=== PATIENT | female | born 1945 | race Caucasian/White ===

== ENCOUNTER 2021-09-16 10:33 | Emergency (ER) | payer OTHER ==
[~2021-09-16] VITALS: Ht 152.4 cm; Wt 63.5 kg
[2021-09-16] MEDS ORDERED: PLAVIX75 MG PO (10:50)
[2021-09-16] MEDS ORDERED: CARDIZEM120 MG PO (10:52)
[2021-09-16] MEDS ORDERED: METOPROLOL SUCC50 MG PO (10:52)
[2021-09-16] MEDS ORDERED: CIPRO500 MG PO (15:56)
[2021-09-16] MEDS ORDERED: PEPCID AC20 MG PO (15:56)
[2021-09-16] MEDS ORDERED: LEVSIN/SL0.125 MG PO (15:56)
[2021-09-16] MEDS ORDERED: METRONIDAZOLE500 MG PO (15:56)
== END 2021-09-16 16:25 ==
LOC: ER 10:33
DX: R10.32 Left lower quadrant pain (principal); I10 Essential (primary) hypertension; E11.65 Type 2 diabetes mellitus with hyperglycemia

== ENCOUNTER 2022-05-12 12:11 | Outpatient (CLI) | payer OTHER ==
[~2022-05-12 12:11] MED LIST: CARDIZEM120 MG PO; CIPRO500 MG PO; LEVSIN/SL0.125 MG PO; METOPROLOL SUCC50 MG PO; METRONIDAZOLE500 MG PO; PEPCID AC20 MG PO; PLAVIX75 MG PO
== END 2022-05-12 12:17 | disposition home or self-care (01) ==
LOC: MAMO-SONO 12:11
PROVIDERS: ATTEND Internal Medicine Cardiovascular Disease
DX: N63.0 Unspecified lump in unspecified breast (principal)

== ENCOUNTER 2024-02-09 10:02 | Outpatient (CLI) | payer OTHER | END 2024-02-09 10:10 | disposition home or self-care (01) | LOC: SONOGRAMA 10:02 | DX: R10.9 Unspecified abdominal pain (principal) ==

== ENCOUNTER 2024-10-01 11:46 | Emergency (ER) | payer OTHER ==
[~2024-10-01] VITALS: Ht 152.4 cm; Wt 62.1 kg
[2024-10-01] MEDS ORDERED: TOPROL XL100 M1 PO (12:40)
[2024-10-01] MEDS ORDERED: LASIX20 MG PO (12:41)
[2024-10-01] MEDS ORDERED: METFORMIN HCL500 M3 PO (12:41)
[2024-10-01] MEDS ORDERED: ATIVAN1 M1 PO (12:42)
[2024-10-01] MEDS ORDERED: GLIMEPIRIDE4 MG PO (12:42)
[2024-10-01] MEDS ORDERED: ONDANSETRON HCL 2 MG/ML VIAL ONE (13:30)
[2024-10-01] MEDS ORDERED: ONDANSETRON HCL 2 MG/ML VIAL IV ONE (13:30)
[2024-10-01] MEDS ORDERED: MECLIZINE HCL 25 MG TABLET PO ONE ×2 (13:30→13:31)
[2024-10-01 13:50] LABS: HEMOGLOBIN 14.3 g/dL (12.0-15.00); MEAN CELL VOLUME 86.2 fL (80.00-100.00); MEAN CORPUSCULAR HGB CONC 32.5 g/dl (32.0-36.0); PLATELET COUNT 214 K/uL (150-450); RED BLOOD COUNT 5.11 M/uL (4.00-6.00); RED CELL DISTRIBUTION WIDTH 14.8 % (11.5-14.5)
[2024-10-01 14:41] LABS: BILIRUBIN TOTAL 0.69 mg/dL (0.3-1.2); CALCIUM 9.4 mg/dL (8.5-10.1); CREATININE SERUM 0.96 mg/dL (0.55-1.02); GFR 55.92; GLOBULINA 4.6 G/DL (2.4-3.5); POTASSIUM 3.82 mEq/L (3.5-5.1); TOTAL PROTEIN 8.6 gm/dL (6.4-8.2)
[2024-10-01] MEDS ORDERED: MEDI-MECLIZINE25 MG PO (14:51)
== END 2024-10-01 15:01 | disposition home or self-care (01) ==
LOC: ER 11:49
PROVIDERS: General Practice
DX: R42 Dizziness and giddiness (principal); I11.9 Hypertensive heart disease without heart failure; Z88.0 Allergy status to penicillin; Z88.6 Allergy status to analgesic agent; J32.0 Chronic maxillary sinusitis
CPT/HCPCS: 36415; 70450; 93005; 96365; 99284; J2405